=== PATIENT | male | born 1950 | race Caucasian/White ===

== ENCOUNTER 2016-10-21 14:00 | Emergency (ER) | payer MEDICARE ==
[~2016-10-21] VITALS: Ht 175.3 cm; Wt 65.9 kg
[~2016-10-21 14:00] MED LIST: ZOLP10TA2 PO
[2016-10-21 14:36] LABS: GLUCOSE,POINT OF CARE 130 MG/DL (70-110)
[2016-10-21 15:39] LABS: APPEARANCE,URINE CLOUDY (CLEAR); GLUCOSE, URINE (UA) NEGATIVE (NEGATIVE); KETONES,URINE NEGATIVE (NEGATIVE); LEUKOCYTE ESTERASE ,URINE TRACE (NEGATIVE); OCCULT BLOOD,URINE SMALL (NEGATIVE); PH,URINE 5.5 (5.0-8.0); PROTEIN,URINE NEGATIVE (NEGATIVE)
[2016-10-21 15:40] LABS: ADD UA MICROSCOPIC YES
[2016-10-21 16:07] LABS: RBC,URINE 0-2 /HPF (0-2); WBC,URINE 0-2 /HPF (0-5)
[2016-10-21 16:08] LABS: SQUAMOUS EPITHELIAL CELL,UR Rare /LPF (None Seen); URIC ACID CRYSTALS,URINE Many /LPF (None Seen)
[2016-10-21 16:54] VITALS: BP 170/85
== END 2016-10-21 17:08 | disposition left against medical advice (07) ==
LOC: EMS 14:03
DX: R42 Dizziness and giddiness (principal)
CPT/HCPCS: 82962; 99284

== ENCOUNTER 2016-10-30 07:46 | Emergency (ER) | payer MEDICARE ==
[~2016-10-30] VITALS: Ht 175.3 cm; Wt 65.9 kg
[2016-10-30 08:02] LABS: GLUCOSE,POINT OF CARE 125 MG/DL (70-110)
[2016-10-30 08:08] VITALS: BP 173/77
[2016-10-30] MEDS ORDERED: LORazepam 1 MG TABLET PO ONE (08:15)
== END 2016-10-30 09:18 | disposition home or self-care (01) ==
LOC: EMS 07:47
DX: F41.9 Anxiety disorder, unspecified (principal)
CPT/HCPCS: 82962; 99282